=== PATIENT | female | born 1990 | race Hispanic/Latino ===

== ENCOUNTER 2017-08-05 22:36 | Emergency (ER) | payer MEDICAID, OTHER ==
[~2017-08-05 22:36] MED LIST: PREN1TAB80 PO; PROG50VI5 IM
[2017-08-05 23:12] LABS: RAPID GROUP A STREP NEGATIVE (NEGATIVE)
[2017-08-05 23:17] LABS: BILIRUBIN,URINE Negative (NEGATIVE); COLOR,URINE Yellow (YELLOW); GLUCOSE, URINE (UA) Negative (NEGATIVE); KETONES,URINE Negative (NEGATIVE); LEUKOCYTE ESTERASE ,URINE Negative (NEGATIVE); NITRATE,URINE Negative (NEGATIVE); OCCULT BLOOD,URINE Negative (NEGATIVE); PROTEIN,URINE Negative (NEGATIVE)
[2017-08-05 23:23] LABS: APPEARANCE,URINE CLEAR (CLEAR); HCG,QUAL RESULT NEGATIVE (NEGATIVE)
[2017-08-05] MEDS ORDERED: IPRATROPIUM/ALBUTEROL SULFATE 3 ML SOLUTION IH ONE (23:23)
== END 2017-08-06 00:41 | disposition home or self-care (01) ==
LOC: EDH 22:36
DX: J20.9 Acute bronchitis, unspecified (principal); Z98.890 Other specified postprocedural states
CPT/HCPCS: 71046; 81003; 81025; 87804; 87880; 94640

== ENCOUNTER 2017-08-09 23:05 | Emergency (ER) | payer SELFPAY ==
[2017-08-10] MEDS ORDERED: DEXAMETHASONE SOD PHOSPHATE 10MG/ML 1ML VIAL ONE (00:35)
== END 2017-08-10 00:48 | disposition home or self-care (01) ==
LOC: EDH 23:05
DX: J20.9 Acute bronchitis, unspecified (principal); Z98.890 Other specified postprocedural states
CPT/HCPCS: 71045; 96372; 99283; J1100

== ENCOUNTER 2018-04-26 11:07 | Emergency (ER) | payer MEDICAID, OTHER ==
[2018-04-26 11:29] LABS: APPEARANCE,URINE Clear (CLEAR); BILIRUBIN,URINE Negative (NEGATIVE); COLOR,URINE Yellow (YELLOW); GLUCOSE, URINE (UA) Negative (NEGATIVE); KETONES,URINE Negative (NEGATIVE); LEUKOCYTE ESTERASE ,URINE Negative (NEGATIVE); NITRATE,URINE Negative (NEGATIVE); OCCULT BLOOD,URINE Negative (NEGATIVE); PH,URINE 6.5 (5.0-8.0); PROTEIN,URINE Negative (NEGATIVE)
[2018-04-26 11:35] LABS: HCG,QUAL RESULT NEGATIVE (NEGATIVE)
== END 2018-04-26 12:40 | disposition home or self-care (01) ==
LOC: EDH 11:07
DX: N83.291 Other ovarian cyst, right side (principal); Z98.890 Other specified postprocedural states
CPT/HCPCS: 76830; 76856; 81003; 81025

== ENCOUNTER 2018-12-27 22:20 | Emergency (ER) | payer SELFPAY ==
[2018-12-27 22:51] LABS: APPEARANCE,URINE Clear (CLEAR); BILIRUBIN,URINE Negative (NEGATIVE); COLOR,URINE Dark Yellow (YELLOW); GLUCOSE, URINE (UA) Negative (NEGATIVE); KETONES,URINE Negative (NEGATIVE); LEUKOCYTE ESTERASE ,URINE Negative (NEGATIVE); NITRATE,URINE Negative (NEGATIVE); OCCULT BLOOD,URINE Large (NEGATIVE); PROTEIN,URINE Trace mg/dL (NEGATIVE)
[2018-12-27 22:54] LABS: HCG,QUAL RESULT NEGATIVE (NEGATIVE)
[2018-12-27] MEDS ORDERED: SODIUM CHLORIDE 0.9% 1000ML 1,000 ML IV ONE (23:12)
[2018-12-27 23:13] LABS: BASOPHILS % (AUTO) 0.3 % (0.0-5.0); EOSINOPHILS % (AUTO) 4.2 % (0.0-8.0); HEMATOCRIT 32.5 % (36-48); LYMPHOCYTES % (AUTO) 47.6 % (21.0-51.0); MEAN CORPUSCULAR HEMOGLOBIN 26.3 pg (27.0-33.0); MEAN CORPUSCULAR HGB CONC 33.5 g/dL (32.0-36.0); MEAN CORPUSCULAR VOLUME 78.4 fL (79-99); MONOCYTES % (AUTO) 5.1 % (3.0-13.0); NEUTROPHILS % (AUTO) 42.8 % (40.0-77.0); PLATELET COUNT (AUTO) 218 K/uL (130-400); RED BLOOD CELL COUNT(AUTO) 4.14 MIL/uL (4.00-5.50); RED CELL DISTRIBUTION WIDTH 15.7 % (11.0-15.5); WHITE BLOOD COUNT (AUTO) 9.1 K/uL (4.8-10.8)
[2018-12-27 23:14] LABS: BACTERIA,URINE None Seen /HPF (None Seen); SQUAMOUS EPITHELIAL CELL,UR Few /HPF (0-2); WBC,URINE None Seen /HPF (0-1)
[2018-12-27 23:24] LABS: CREATININE 0.8 mg/dL (0.5-1.5); POTASSIUM 3.9 mmol/L (3.5-5.1)
[2018-12-27 23:28] LABS: INR 1.02 (0.85-1.15); PARTIAL THROMBOPLASTIN TIME 25.7 SEC (26.3-35.5); PROTHROMBIN TIME 10.7 SEC (9.6-11.6)
[2018-12-27] MEDS ORDERED: KETOROLAC TROMETHAMINE 30MG/ML ONE (23:32)
== END 2018-12-28 01:01 | disposition home or self-care (01) ==
LOC: EDH 22:20
DX: N93.8 Other specified abnormal uterine and vaginal bleeding (principal)
CPT/HCPCS: 36415; 76856; 80048; 81001; 81025; 85025; 85610; 85730; 96374; 99284; J1885; J7030

== ENCOUNTER 2020-11-08 17:37 | Emergency (ER) | payer MEDICAID, OTHER ==
[~2020-11-08] VITALS: Ht 157.5 cm; Wt 104.3 kg
[2020-11-08 17:41] VITALS: BP 129/72
[2020-11-08] MEDS ORDERED: 0.9%NACL 1000ML 1,000 ML IV ONE ×2 (20:00→21:47)
[2020-11-08 20:10] LABS: BASOPHILS % (AUTO) 0.5 % (0.0-5.0); EOSINOPHILS % (AUTO) 1.1 % (0.0-8.0); HEMATOCRIT 30.7 % (36-48); LYMPHOCYTES % (AUTO) 33.9 % (21.0-51.0); MEAN CORPUSCULAR HEMOGLOBIN 24.4 pg (27.0-33.0); MEAN CORPUSCULAR HGB CONC 28.3 g/dL (32.0-36.0); MONOCYTES % (AUTO) 4.9 % (3.0-13.0); NUCLEATED RED BLOOD CELLS 0.3 % (0.0-0.19); PLATELET COUNT (AUTO) 236 K/uL (130-400); RED BLOOD CELL COUNT(AUTO) 3.57 MIL/uL (4.00-5.50); RED CELL DISTRIBUTION WIDTH 19.5 % (11.0-15.5); WHITE BLOOD COUNT (AUTO) 8.8 K/uL (4.8-10.8)
[2020-11-08 20:21] LABS: CARBON DIOXIDE 26 mmol/L (21-32); CHLORIDE 102 mmol/L (101-111); CREATININE 0.8 mg/dL (0.5-1.5); GLOMERULAR FILTR. RATE CALC 90 mL/min (>60); GLUCOSE,RANDOM 293 mg/dL (70-105); POTASSIUM 4.2 mmol/L (3.5-5.1); SODIUM SERUM 137 mmol/L (136-145); UREA NITROGEN, BLOOD 11 mg/dL (7-18)
[2020-11-08 20:23] LABS: INR 0.94 (0.85-1.15); PROTHROMBIN TIME 10.3 SEC (9.6-11.6)
[2020-11-08 20:23] LABS: ABG OXYGEN SATURATION 56.3 % (95.0-99.0); BASE EXCESS,VENOUS BLOOD GAS -3.9 (-2.0-3.0); HCO3,VENOUS BLOOD GAS 20.6 (21.0-28.0); PCO2,VENOUS BLOOD GAS 36 (32-45); PH,VENOUS BLOOD GAS 7.374 (7.350-7.450)
[2020-11-08 20:26] LABS: ALANINE AMINOTRANSFERASE 33 U/L (12-78); ALBUMIN 3.4 g/dL (3.5-5.0); ASPARTATE AMINOTRANSFERASE 11 U/L (10-37); BILIRUBIN,TOTAL 0.3 mg/dL (0.2-1.0)
[2020-11-08 20:30] LABS: B-TYPE NATRIURETIC PEPTIDE 31 pg/mL (0-100)
[2020-11-08] MEDS ORDERED: METO-296 PO (21:39)
[2020-11-08] MEDS ORDERED: ONDA4TAB10 PO (21:39)
== END 2020-11-08 23:19 | disposition home or self-care (01) ==
LOC: EDH 17:37
DX: E86.9 Volume depletion, unspecified (principal); D64.9 Anemia, unspecified; R53.1 Weakness; R42 Dizziness and giddiness; R06.02 Shortness of breath; E11.9 Type 2 diabetes mellitus without complications; Z79.899 Other long term (current) drug therapy
CPT/HCPCS: 36415; 36600; 71045; 80053; 82010; 82803; 83880; 84484; 85025; 85610; 93005; 96360; 99285; J7030

== ENCOUNTER 2025-03-20 20:37 | Emergency (ER) | payer BC ==
[~2025-03-20] VITALS: Ht 157.5 cm; Wt 112.0 kg
--- NOTE | 2025-03-20 20:54 | ERN ---
General Chief Complaint: Weakness Stated Complaint: C/O WEAKNESS, DIZZINESS, "NOT FEELING WELL" Time Seen by MD: 20:39 History of Present Illness Initial Comments 34-year-old female history of diabetes, anemia, Hodgkin's lymphoma here for evaluation of weakness. Patient states that she has had a history of anemia for which he required iron transfusions however missed her last transfusions secondary to the holiday season. She has been transfused with blood before in the past and was concerned that her hemoglobin might be low as her periods today has been heavier than usual. She follows Dr. Garcia. SHe has been in remission since early this year. Allergies: Coded Allergies: No Known Drug Allergies (Unverified Allergy, Unknown, 03/21/15) Home Meds Active Scripts Metoclopramide HCl (Reglan) 10 Mg Tablet, 10 MG PO TIDP, #20 TAB 0 Refills Prov:OMARI ZHAO MD 11/08/20 Ondansetron (Ondansetron Odt) 4 Mg Tab.rapdis, 4 MG PO Q6HPRN, #20 TAB 0 Refills Prov:OMARI ZHAO MD 11/08/20 Reported Medications Progesterone (Progesterone) 50 Mg/1 Ml Vial, 50 MG IM QWEEK, VIAL 04/19/15 Vits W-Ca,Fe,FA(<1Mg) ( Vitamins) 1 Each Tablet, 1 EACH PO DAILYDINNER, TAB 04/19/15 Past Medical History Past Medical History: Anemia, Diabetes-Type II, Other Medical History Other: HX OF HODGKINS LYMPHOMA Past Surgical History: Cholecystectomy, Other, Surgical History Other: PORT A CATH Constitutional: (+) weakness Genitourinary: (+) vaginal bleeding Review of Systems: was completed, & the rest were negative. Physical Exam Physical Exam Dictation GENERAL APPEARANCE NAD, activity normal for age, well developed/ well nourished, no cyanosis, pallor, or diaphoresis. EYES lids/conjunctiva normal. EARS/NOSE/THROAT Mucous membranes moist, nares normal, lips/teeth normal uvula midline without oral pharyngeal erythema, exudate or swelling TMs normal bilaterally. No lymphangitis/lymphedema. HEAD/NECK normocephalic atraumatic, no facial trauma, neck is supple. RESPIRATORY respiratory effort normal, speaks in full sentences, no tripod position, no accessory muscle use. Lungs clear to auscultation without rhonchi, wheezes, rales CARDIAC Regular rate and rhythm, no edema. ABDOMINAL Soft, ND/NT. No evidence of fluid wave. No pulsatile masses on exam, rebound tenderness, Owens sign or pain over Mcburney's point. MUSCLES/EXTREMITIES No abnormal range of motion, no swelling. SKIN Warm, pink and dry. No rashes, dermatoses, petechiae or lesions. NEUROLOGICAL Speech is clear and appropriate. Normal level of consciousness. Gait and coordination are normal. 5/5 strength in all extremities. PSYCH Normal mood and affect. Judgement/competence is appropriate Results Laboratory and Microbiology Lab and Micro Result Laboratory Tests Test 03/20/25 20:48 White Blood Count 7.5 K/uL (4.8-10.8) Red Blood Count 4.15 MIL/uL (4.00-5.50) Hemoglobin 8.2 g/dL (12.0-16.0) L Hematocrit 28.7 % (36-48) L Mean Corpuscular Volume 69.2 fL (79-99) L Mean Corpuscular Hemoglobin 19.8 pg (27.0-33.0) L Mean Corpuscular Hemoglobin Concent 28.6 g/dL (32.0-36.0) L Red Cell Distribution Width 19.9 % (11.0-15.5) H Platelet Count 260 K/uL (130-400) Mean Platelet Volume 9.8 fL (7.5-10.5) Immature Granulocyte % (Auto) 0.5 % (0-1) Neutrophils (%) (Auto) 70.7 % (40.0-77.0) Lymphocytes (%) (Auto) 17.9 % (21.0-51.0) L Monocytes (%) (Auto) 6.0 % (3.0-13.0) Eosinophils (%) (Auto) 4.5 % (0.0-8.0) Basophils (%) (Auto) 0.4 % (0.0-5.0) Neutrophils # (Auto) 5.3 K/uL (1.8-7.7) Lymphocytes # (Auto) 1.3 K/uL (1.0-4.8) Monocytes # (Auto) 0.5 K/uL (0.1-1.0) Eosinophils # (Auto) 0.34 K/uL (0.00-0.70) Basophils # (Auto) 0.03 K/uL (0.00-0.20) Absolute Immature Granulocyte (auto 0.04 K/uL (0-1) Nucleated Red Blood Cells 0.0 % (0.0-0.19) Red Blood Cell Morphology See comments Sodium Level 138 mmol/L (136-145) Potassium Level 4.3 mmol/L (3.5-5.1) Chloride Level 103 mmol/L (101-111) Carbon Dioxide Level 30 mmol/L (21-32) Blood Urea Nitrogen 12 mg/dL (7-18) Creatinine 0.7 mg/dL (0.5-1.0) Glomerular Filtration Rate Calc 116 mL/min (>90) Random Glucose 104 mg/dL (70-105) Total Calcium 8.7 mg/dL (8.5-10.1) Serum Test, Qualitative NEGATIVE (NEGATIVE) MDM 34-year-old female here for evaluation of weakness. She has a history of anemia requiring blood transfusions. We will get a CBC, type and screen and reassess. Disposition pending results of labs. ED Course Orders Procedure Category Date Status Time Cbc With Differential LAB 03/20/25 Complete 20:40 Testing, LAB 03/20/25 Complete Serum Hcg 20:40 Basic Metabolic Panel LAB 03/20/25 Complete 20:40 Type And Screen BBK 03/20/25 In Process 20:53 Ketorolac PHA 03/20/25 Complete Tromethamine 15mg/Ml 21:30 Current Medications Medications (Trade) Dose Ordered Sig/Hattie Route PRN Reason Start Time Stop Time Status Last Admin Dose Admin Ketorolac Tromethamine (toRADol) 15 mg ONCE ONCE IM 03/20/25 21:30 03/20/25 21:31 DC Vital Signs Date Time Temp Pulse Resp B/P (MAP) Pulse Ox O2 Delivery O2 Flow Rate FiO2 03/20/25 20:39 98.2 93 20 126/76 100 Room Air Labs reassuring. CBC shows no hemoglobin less than seven. Thus we will discharge her home. We will give her a shot of Toradol for her menorrhagia/cyclical pain. DX & DISP Disposition: Discharge Departure Impression: Primary Impression: Menorrhagia Additional Impression: Anemia Condition: Stable Referrals: LEX NAGEL (PCP) INGRID ESCAMILLA MD Mar 20, 2025 20:54
[2025-03-20 20:55] LABS: IMMATURE GRANULOCYTE ABSOLUTE 0.04 K/uL (0-1); NUCLEATED RED BLOOD CELLS 0.0 % (0.0-0.19); PLATELET COUNT (AUTO) 260 K/uL (130-400); RED BLOOD CELL COUNT(AUTO) 4.15 MIL/uL (4.00-5.50); RED CELL DISTRIBUTION WIDTH 19.9 % (11.0-15.5); WHITE BLOOD COUNT (AUTO) 7.5 K/uL (4.8-10.8)
[2025-03-20 21:06] LABS: CREATININE 0.7 mg/dL (0.5-1.0); GLOMERULAR FILTR. RATE CALC 116.0 mL/min (>90); GLUCOSE,RANDOM 104.0 mg/dL (70-105); SODIUM SERUM 138.0 mmol/L (136-145); UREA NITROGEN, BLOOD 12.0 mg/dL (7-18)
[2025-03-20 21:58] VITALS: BP 126/79; PULSE 90; RESP 18; TEMP 98.4; O2SAT 98
== END 2025-03-20 21:57 | disposition home or self-care (01) ==
LOC: EDH 20:37
DX: N92.0 Excessive and frequent menstruation with regular cycle (principal); D64.9 Anemia, unspecified; E11.9 Type 2 diabetes mellitus without complications; Z90.49 Acquired absence of other specified parts of digestive tract; Z85.71 Personal history of Hodgkin lymphoma; Z98.890 Other specified postprocedural states
CPT/HCPCS: 99284; 80048; 84703; 85025; 86850; 86900; 86901; 36415; 96372; J1885